=== PATIENT | male | born 1980 | race African-American/Black ===

== ENCOUNTER 2024-02-11 07:30 | Outpatient (RCR) | payer OTHER, SELFPAY ==
--- NOTE | 2023-12-31 08:44 | OT.OPPOC ---
Physical, Occupational & Speech Therapy At [facility] Mariam Wilkins [id number] 1980 Visit Care Team Role Provider Type Og Zimmerman Attending Provider Non-Staff Family Provider Primary Care Provider Referring Provider Address: [address] [place] [address], [place], [address] Occupational Therapy Plan of Care OT Outpatient Adult Evaluation Start: 12/31/23 07:25 Freq: Status: Active Protocol: Document 12/31/23 07:30 SHARDA (Rec: 12/31/23 08:07 SHARDA [id number]) General Information - Adult Visit Information Visit Number 04/02 Plan of Care Dates 12/31/23 - 03/10/24 Insurance Information Prime 12 visits approved Session Time Visit Start Date 12/31/23 Visit Start Time 07:30 Visit Stop Time 08:13 Setting Treatment Setting Outpatient Care Visit Type Note Type Initial Evaluation Referral Referring Physician Og Zimmerman Reason for Referral injury R wrist, hand, and fingers Identification Identification Confirmed Yes Identification Confirmed By pt EMR Patient Questionnaires Quick Dash- Upper Extremity Quick Dash UE Score 54.5 Quick Dash UE Impairment 40 to 59% Impaired (Score 40- 59) Quick Dash- Work and Sports Modules Quick Dash W&S Score Work 50/Sport 25 Quick Dash Work and Sport Impairment 40 to 59% Impaired (Score 40- 59) Goals Objective Measurements Objective Measurements Desulfurizer Operator: R 65, 75, 79 (avg 73#); L 121, 141, 154 (avg 138.7#) Lateral: R 27, L 23 Pincer: R 25, L 16 3 jaw: R 24, L 23 Treatment Treatment Coban used to maría tape 4th and 5th digits below PIP level Short Term Goals Short Term Goals 1. Pt will report compliance with maría taping 24 hrs a day (except when showering or washing hands). 2. Pt will increase average purchasing and claims supervisor strength to 85# to assist in desired leisure tasks. 3. Pt will report mild difficulty with carrying a shopping bag. 4. Pt will report pain at 6/10 or less with activity. Track Patrol Goals Prison Goals 1. Pt will be I with HEP. 2. Pt will increase average purchasing and claims supervisor strength to 110# to assist in desired leisure tasks . 3. Pt will report improved function with QuickDash score of 25 or better. 4. Pt will report no pain with PROM of 5th digit. Assessment/Plan Assessment Patient Response Good Rehabilitation Potential Good Impairments Identified Body Mechanics,Coordination/ Dexterity,Functional Activities,Pain,Weakness, Posture,Meaningful Activities Treatment Assessment Pt is 43 yo M referred for skilled OT services with a hx of R dominant 5th PCP joint traumatic injury, negative xrays, with persistent pain with stressing of the joint, per MD order. Pt reports he sustained his injury while loading a heavy case into aircraft and his hand was caught between the case and the aircraft. Pt reports that the initial injury was around November 15. He had initial laceration to his hand but painful symptoms have worsened with time. Pt reports he?s had increased pain when shaking hands, opening jars, lifting heavy items, and active and passive movements. 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 Pt reports no pain or difficulty with typical administrative duties. Pt?s Pmhx includes back pain, neck pain, and headaches. Pt has pain along his posterior 5th MP and in the web space between 4th and 5th digits with full active fisting, active radial deviation, active ulnar deviation, and active digit abd/add. Pt demonstrates full AROM of B UEs. Pt reported increased pain when OT performed 5th digit PROM by itself but lessened symptoms when 4th and 5th digits were passively ranged together. Pt has no sensory deficits or complaints. Pt?s symptoms are consistent with a ligamentous injury. OT educated pt on maría strapping/taping strategy and recommends performing this for 24 hours a day (except when bathing or washing hands) for approximately 6 weeks to allow for healing. OT applied coban of 4th and 5th digits below PIP to assist. Pt reports somewhat decreased symptoms when performing AROM in this position. Pt unable to tolerate gentle isometrics at time of eval without significant c/o pain. Skilled OT services are appropriate to address pts deficits and to promote return toward PLOF. Reviewed with Patient Goals Patient Understanding Excellent Plan Length of treatment (weeks) 10 Plan of Care Start Date 12/31/23 Plan of Care End Date 03/10/24 Treatment Frequency Once a Week Treatment Duration 45 Minutes Therapeutic Contents Client Education,Functional Activities,Home Exercise Program,Joint Protection, Manual Therapy,Education, Stretching/Flexibility Activities,Therapeutic Activities,Therapeutic Exercises Modalities As Needed Patient Instruction Plan of Care,Questions/ Concerns,Other Comment María taping strategy and reasoning Functional Wrist/Hand Scan Hand Side Sensory Assessment Sensory Profile2 Electronically Signed by: Audelia Gregory OT 12/31/23 0844 If you are in agreement with this Plan of Care, please return a signed and dated copy. I have reviewed this Plan of Care and certify that the skilled therapy services above are required to meet the patient?s needs. Physician Signature Date Printed Name and Credentials Clinical Instructor Signature Printed Name and Credentials
--- NOTE | 2024-01-07 08:11 | OT.OP.TRT ---
Visit Care Team Role Provider Type Og Zimmerman Attending Provider Non-Staff Family Provider Primary Care Provider Referring Provider Specialty: Medical Address: [address] [place] [address], [place], [address] Email: Occupational Therapy Treatment Note OT Outpatient Treatment Note - Adult Start: 12/31/23 07:25 Freq: Status: Active Protocol: Document 01/07/24 07:30 SHARDA (Rec: 01/07/24 07:28 SHARDA [id number]) OT Outpatient Adult Treatment Note Session Time Visit Start Date 01/07/24 Visit Start Time 07:30 Visit Stop Time 08:05 Visit Information Visit Number 05/03 Plan of Care Dates 12/31/23 - 03/10/24 Insurance Information Prime 12 visits approved Setting Treatment Setting Outpatient Care Visit Type Note Type Treatment Note - Subjective Identification Type Name Identification Reconciled With Medical Record Observations Pt reports he hasn't had to shake hands since people notice the maría tape. I guess because it is taped together and I am not moving it as much it is not bothering me as much. Pt reports that his instinctively grabbed his hand and he had instant 7- 8/10 and lingered for a few hours. Pt reports pain during tx at 2/10, except during ball squeeze which was 8/10. Exercise was discontinued after first rep. - Objective Short Term Goals 1. Pt will report compliance with maría taping 24 hrs a day (except when showering or washing hands). 2. Pt will increase average cannery tender engineer strength to 85# to assist in desired leisure tasks. 3. Pt will report mild difficulty with carrying a shopping bag. 4. Pt will report pain at 6/10 or less with activity. Case Fitter Goals 1. Pt will be I with HEP. 2. Pt will increase average cannery tender engineer strength to 110# to assist in desired leisure activities. 3. Pt will report improved function with QuickDash score of 25 or better. 4. Pt will report no pain with PROM of 5th digit. - Exercises 2 Descriptor tendon glides 1 Descriptor Glass Worker/pinch strength: ball squeeze (5) x1 rep, c/o 8/10 pain, discontinued yellow digi flex 4th and 5th flexion (pain free ROM) 2 min x2 blue foam roll claw fist (pain free ROM) 2 min x 2 yellow tputty: hook curls, digit extension, finger adduction (MPs flexed) to tolerance - Assessment Patient Response to Treatment Excellent Rehabilitation Potential Excellent Impairments Identified Body Mechanics,Coordination/ Dexterity,Functional Activities,Pain,Weakness, Posture,Meaningful Activities Progress Towards Goals Good Progress Assessment of Overall Progress Improving Assessment of Improvement Pt demonstrates good compliance with maría taping strategy and his reports of reduced pain with activity coincides with this nicely. Pt tolerated all exercises well, except for 5 ball squeeze and putty abd (fingers extended). Both of these were immediately discontinued. Pt able to tolerate putty abd with MPs in flexed position. OT educated pt to continue with maría taping and issued tputty HEP. Skilled OT services remain appropriate for pt. Cont per established POC. Reviewed with Patient/Caregiver Home Exercise Program Patient/Caregiver Understanding Excellent - Plan Therapy Recommendations Continue with Current Program Amount of Therapy Recommended 2-3 Months Frequency of Treatment Once a Week Length of Session 45 Minutes Therapeutic Contents Client Education,Functional Activities,Home Exercise Program,Joint Protection, Manual Therapy,Education, Stretching/Flexibility Activities,Therapeutic Activities,Therapeutic Exercises Modalities As Needed
--- NOTE | 2024-01-14 08:08 | OT.OP.TRT ---
Visit Care Team Role Provider Type Og Zimmerman Attending Provider Non-Staff Family Provider Primary Care Provider Referring Provider Specialty: Medical Address: [address] [place] [address], [place], [address] Email: Occupational Therapy Treatment Note OT Outpatient Treatment Note - Adult Start: 12/31/23 07:25 Freq: Status: Active Protocol: Document 01/14/24 07:30 SHARDA (Rec: 01/14/24 08:08 SHARDA [id number]) OT Outpatient Adult Treatment Note Session Time Visit Start Date 01/14/24 Visit Start Time 07:30 Visit Stop Time 08:00 Visit Information Visit Number 05/31 Plan of Care Dates 12/31/23 - 03/10/24 Insurance Information Prime 12 visits approved Setting Treatment Setting Outpatient Care Visit Type Note Type Treatment Note - Subjective Identification Type Name Identification Reconciled With Medical Record Observations Pt reports that he has been performing fist bumps instead of shaking hands. He continues to wear his maría taping at all times except when cooking or bathing. Pt reports pain at worse in the last few days 09/30 but these are infrequent instances. Pt reports no pain with the maría taping. Pt reports feeling fatigued at end of tx, no increased pain. - Objective Short Term Goals 1. Pt will report compliance with maría taping 24 hrs a day (except when showering or washing hands). MET 01/14/24 2. Pt will increase average heater mechanic strength to 85# to assist in desired leisure tasks. 3. Pt will report mild difficulty with carrying a shopping bag. 4. Pt will report pain at 6/10 or less with activity. Jewelry Cutter Goals 1. Pt will be I with HEP. 2. Pt will increase average heater mechanic strength to 110# to assist in desired leisure activities. 3. Pt will report improved function with QuickDash score of 25 or better. 4. Pt will report no pain with PROM of 5th digit. - Exercises 2 Descriptor tendon glides 1 Descriptor Production Grader/pinch strength: ball squeeze (5) submaximal squeezes pain free 2 min red digi flex 4th and 5th flexion (pain free ROM) 2 min x2 blue foam roll claw fist (pain free ROM) 2 min x 2 yellow tputty: hook curls, digit extension, finger adduction (MPs flexed) to tolerance isometric 4th and 5th adduction 3-5 second holds - Assessment Patient Response to Treatment Excellent Rehabilitation Potential Excellent Impairments Identified Body Mechanics,Coordination/ Dexterity,Functional Activities,Pain,Weakness, Posture,Meaningful Activities Progress Towards Goals Good Progress Assessment of Overall Progress Improving Assessment of Improvement Pt tolerated tx well. Pt was able to increase to red digi flex, perform submaximal ball service center supervisor without pain, and tolerated isometric adduction. OT continues to explain the importance of maría taping during the healing process. Pt is compliant and understands this well. Pt has met STG #1 and continues to make progress per established POC. Home Exercise Program yellow tputty Reviewed with Patient/Caregiver Home Exercise Program Patient/Caregiver Understanding Excellent - Plan Therapy Recommendations Continue with Current Program Amount of Therapy Recommended 2-3 Months Frequency of Treatment Once a Week Length of Session 45 Minutes Therapeutic Contents Client Education,Functional Activities,Home Exercise Program,Joint Protection, Manual Therapy,Education, Stretching/Flexibility Activities,Therapeutic Activities,Therapeutic Exercises Modalities As Needed
--- NOTE | 2024-01-28 08:08 | OT.OP.TRT ---
Visit Care Team Role Provider Type Og Zimmerman Attending Provider Non-Staff Family Provider Primary Care Provider Referring Provider Specialty: Medical Address: [address] [place] [address], [place], [address] Email: Occupational Therapy Treatment Note OT Outpatient Treatment Note - Adult Start: 12/31/23 07:25 Freq: Status: Active Protocol: Document 01/28/24 07:27 SHARDA (Rec: 01/28/24 08:08 SHARDA [id number]) OT Outpatient Adult Treatment Note Session Time Visit Start Date 01/28/24 Visit Start Time 07:30 Visit Stop Time 08:00 Visit Information Visit Number 07/01 Plan of Care Dates 12/31/23 - 03/10/24 Insurance Information Prime 12 visits approved Setting Treatment Setting Outpatient Care Visit Type Note Type Treatment Note - Subjective Identification Type Name Identification Reconciled With Medical Record Observations I think it's feeling a little better. I've been using the putty more often. Pt demonstrates digit abd with pen or his fingers isometricly . Pt reports he performs this throughout the day. Pt reports this last week he was walking in a stairwell in [place] and his finger got snagged. Pt reports his pain was a 10/10. The intensity of the pain went away quickly but was sore for a few days following. Pt reports pain at most during tx at 2/10. - Objective Objective Measurements Derrick Helper: R 110#, 95#, 107# (avg 104#) Short Term Goals 1. Pt will report compliance with maría taping 24 hrs a day (except when showering or washing hands). MET 01/14/24 2. Pt will increase average machine inker strength to 85# to assist in desired leisure tasks. MET 01/28/24 3. Pt will report mild difficulty with carrying a shopping bag. 4. Pt will report pain at 6/10 or less with activity. Regional Controller Goals 1. Pt will be I with HEP. 2. Pt will increase average machine inker strength to 110# to assist in desired leisure activities. 3. Pt will report improved function with QuickDash score of 25 or better. 4. Pt will report no pain with PROM of 5th digit. - Exercises 2 Descriptor tendon glides 1 Descriptor Derrick Helper/pinch strength: ball squeeze (5): 0 green digi flex all digits ( pain free ROM) 2 min x 2 yellow digi flex alternating 4th and 5th 2 min x 2 blue foam roll claw fist (pain free ROM) 2 min x 2 yellow tputty: 0 isometric 4th and 5th: 0 blue clothes pin: 4th and 5th digit pinch 10 x 2 - Assessment Patient Response to Treatment Excellent Rehabilitation Potential Excellent Impairments Identified Body Mechanics,Coordination/ Dexterity,Functional Activities,Pain,Weakness, Posture,Meaningful Activities Progress Towards Goals Good Progress Assessment of Overall Progress Improving Assessment of Improvement OT discussed pt's maría taping routine and suggested wearing it until at least 01/31 (6 weeks from start), at which time, pt can test doing activities without it on. If they increase his pain, OT suggests re-applying maría taping and testing it again in 1-2 weeks. Pt demonstrates a gain in machine inker strength average of 31#. His non-dominant hand is still 34# stronger than his R, continued gains expected for pt. Pt tolerated increased resistance and strengthening exercises today with minimal increase in symptoms. Pt forgot his putty . OT to assess pt's I with HEP when he remembers to bring. Pt makes progress per established POC. Cont per POC. Reviewed with Patient/Caregiver Home Exercise Program Patient/Caregiver Understanding Excellent - Plan Therapy Recommendations Continue with Current Program Amount of Therapy Recommended 2-3 Months Frequency of Treatment Once a Week Length of Session 45 Minutes Therapeutic Contents Client Education,Functional Activities,Home Exercise Program,Joint Protection, Manual Therapy,Education, Stretching/Flexibility Activities,Therapeutic Activities,Therapeutic Exercises Modalities As Needed
--- NOTE | 2024-02-04 08:13 | OT.OP.TRT ---
Visit Care Team Role Provider Type Og Zimmerman Attending Provider Non-Staff Family Provider Primary Care Provider Referring Provider Specialty: Medical Address: [address] [place] [address], [place], [address] Email: Occupational Therapy Treatment Note OT Outpatient Treatment Note - Adult Start: 12/31/23 07:25 Freq: Status: Active Protocol: Document 02/04/24 07:30 SHARDA (Rec: 02/04/24 08:12 CHRISTINALEXUS [id number]) OT Outpatient Adult Treatment Note Session Time Visit Start Date 02/04/24 Visit Start Time 07:30 Visit Stop Time 08:05 Visit Information Visit Number 07/31 Plan of Care Dates 12/31/23 - 03/10/24 Insurance Information [facility] 12 visits approved Setting Treatment Setting Outpatient Care Visit Type Note Type Treatment Note - Subjective Identification Type Name Identification Reconciled With Medical Record Observations It feels good to be honest. No major discomforts really. I 've been doing exercises ( putty). There are vast improvements until. Pt reports no significant pain to note over the last week. - Objective Short Term Goals 1. Pt will report compliance with maría taping 24 hrs a day (except when showering or washing hands). MET 01/14/24 2. Pt will increase average coke wheeler strength to 85# to assist in desired leisure tasks. MET 01/28/24 3. Pt will report mild difficulty with carrying a shopping bag. 4. Pt will report pain at 6/10 or less with activity. MET Moving Worker Goals 1. Pt will be I with HEP. MET 02/04/24 2. Pt will increase average coke wheeler strength to 110# to assist in desired leisure activities. 3. Pt will report improved function with QuickDash score of 25 or better. 4. Pt will report no pain with PROM of 5th digit. - Exercises 2 Descriptor tendon glides 1 Descriptor Sweater Designer/pinch strength: blue digi flex all digits ( pain free ROM) 2 min x 2 red digi flex alternating 4th and 5th 2 min x 2 green tputty: gripping, digit abd, digit add to tolerance blue clothes pin: 4th and 5th digit pinch 10 x 3 coke wheeler digit ext web: 10 x 3 - Assessment Patient Response to Treatment Excellent Rehabilitation Potential Excellent Impairments Identified Body Mechanics,Coordination/ Dexterity,Functional Activities,Pain,Weakness, Posture,Meaningful Activities Progress Towards Goals Good Progress Assessment of Overall Progress Improving Assessment of Improvement Pt was able to tolerate an increase in resistance with digi flex, increased resistance with putty, increased sets with graded clothespin, and addition of resisted digit adduction. Pt tolerates all of these with minimal discomfort. OT discussed attempting to wean off from maría taping/ strapping next week. OT instructs pt to return to wearing taping if he begins to have an increase in pain or discomfort. Pt verbalizes understanding. Pt issued green tputty for home use. PT has met STG #4 and LTG#1. Cont per established POC. Reviewed with Patient/Caregiver Home Exercise Program Patient/Caregiver Understanding Excellent - Plan Therapy Recommendations Continue with Current Program Amount of Therapy Recommended 2-3 Months Frequency of Treatment Once a Week Length of Session 45 Minutes Therapeutic Contents Client Education,Functional Activities,Home Exercise Program,Joint Protection, Manual Therapy,Education, Stretching/Flexibility Activities,Therapeutic Activities,Therapeutic Exercises Modalities As Needed
--- NOTE | 2024-02-11 07:57 | OT.OP.TRT ---
Visit Care Team Role Provider Type Og Zimmerman Attending Provider Non-Staff Family Provider Primary Care Provider Referring Provider Specialty: Medical Address: [address] [place] [address], [place], [address] Email: Occupational Therapy Treatment Note OT Outpatient Treatment Note - Adult Start: 12/31/23 07:25 Freq: Status: Active Protocol: Document 02/11/24 07:30 SHARDA (Rec: 02/11/24 07:57 SHARDA [id number]) OT Outpatient Adult Treatment Note Session Time Visit Start Date 02/11/24 Visit Start Time 07:30 Visit Stop Time 07:55 Visit Information Visit Number 08/31 Plan of Care Dates 12/31/23 - 03/10/24 Insurance Information Prime 12 visits approved Setting Treatment Setting Outpatient Care Visit Type Note Type Treatment Note - Subjective Identification Type Name Identification Reconciled With Medical Record Observations Pt stopped wearing his maría taping on Friday and reports I've had no problems. He reports he can move it better and is not having any pain when people shake his hand. - Objective Objective Measurements QuickDash 2.27 QuickDash Work 0 QuickDash Sport 0 Wine Steward/Stewardess: R 170#, 145#, 141# (avg 152#) Short Term Goals 1. Pt will report compliance with maría taping 24 hrs a day (except when showering or washing hands). MET 01/14/24 2. Pt will increase average jacquard loom carpet weaver strength to 85# to assist in desired leisure tasks. MET 01/28/24 3. Pt will report mild difficulty with carrying a shopping bag. 4. Pt will report pain at 6/10 or less with activity. MET Assisted Goals 1. Pt will be I with HEP. MET 02/04/24 2. Pt will increase average jacquard loom carpet weaver strength to 110# to assist in desired leisure activities. MET 02/11/24 3. Pt will report improved function with QuickDash score of 25 or better. MET 02/11/24 4. Pt will report no pain with PROM of 5th digit. MET - Exercises 1 Descriptor Wine Steward/Stewardess/pinch strength: blue digi flex all digits ( pain free ROM) 2 min x 2 red digi flex alternating 4th and 5th 2 min x 2 green tputty: gripping, digit abd, digit add to tolerance blue clothes pin: 4th and 5th digit pinch 10 x 3 jacquard loom carpet weaver digit ext web: 10 x 3 - Assessment Patient Response to Treatment Excellent Rehabilitation Potential Excellent Impairments Identified Body Mechanics,Coordination/ Dexterity,Functional Activities,Pain,Weakness, Posture,Meaningful Activities Progress Towards Goals Excellent Progress,Goals Met, Appropriate for Discharge Assessment of Overall Progress Improving Assessment of Improvement Pt has made excellent progress since beginning skilled OT services. Pt no longer has pain with any passive or active task. Pt can tolerate loading his hand with grocery bags, shaking hands, and performing his desired leisure tasks without any symptoms. Pt demonstrates significant gains in jacquard loom carpet weaver strength as well as perceived function. See objective section for details. Pt has met all established goals and is eager to d/c to HEP. Pt is appropriate for d/c from skilled services at this time. Reviewed with Patient/Caregiver Goals,Progress Being Made,Home Exercise Program Patient/Caregiver Understanding Excellent - Plan Therapy Recommendations Discharge to Home Exercise Program
--- NOTE | 2024-02-11 07:58 | OT.OP.DC ---
Visit Care Team Role Provider Type Og Zimmerman Attending Provider Non-Staff Family Provider Primary Care Provider Referring Provider Address: [address] [place] [address], [place], [address] Email: OT Outpatient OT Outpatient Adult Evaluation Start: 12/31/23 07:25 Freq: Status: Active Protocol: Document 12/31/23 07:30 SHARDA (Rec: 12/31/23 08:07 SHARDA [id number]) General Information - Adult Visit Information Visit Number 04/02 Plan of Care Dates 12/31/23 - 03/10/24 Insurance Information Prime 12 visits approved Session Time Visit Start Date 12/31/23 Visit Start Time 07:30 Visit Stop Time 08:13 Setting Treatment Setting Outpatient Care Visit Type Note Type Initial Evaluation Referral Referring Physician Og Zimmerman Reason for Referral injurty R wrist, hand, and fingers Identification Identification Confirmed Yes Identification Confirmed By pt EMR Patient Questionnaires Quick Dash- Upper Extremity Quick Dash UE Score 54.5 Quick Dash UE Impairment 40 to 59% Impaired (Score 40- 59) Quick Dash- Work and Sports Modules Quick Dash W&S Score Work 50/Sport 25 Quick Dash Work and Sport Impairment 40 to 59% Impaired (Score 40- 59) Goals Objective Measurements Objective Measurements Dolphin Trainer: R 65, 75, 79 (avg 73#); L 121, 141, 154 (avg 138.7#) Lateral: R 27, L 23 Pincer: R 25, L 16 3 jaw: R 24, L 23 Treatment Treatment Coban used to gordo tape 4th and 5th digits below PIP level Short Term Goals Short Term Goals 1. Pt will report compliance with gordo taping 24 hrs a day (except when showering or washing hands). 2. Pt will increase average rn diabetes educator strength to 85# to assist in desired leisure tasks. 3. Pt will report mild difficulty with carrying a shopping bag. 4. Pt will report pain at 6/10 or less with activity. Snf Goals Snf Goals 1. Pt will be I with HEP. 2. Pt will increase average rn diabetes educator strength to 110# to assist in desired leisre tasks . 3. Pt will report improved function with QuickDash score of 25 or better. 4. Pt will report no pain with PROM of 5th digit. Assessment/Plan Assessment Patient Response Good Rehabilitation Potential Good Impairments Identified Body Mechanics,Coordination/ Dexterity,Functional Activities,Pain,Weakness, Posture,Meaningful Activities Treatment Assessment Pt is 43 yo M referred for skilled OT services with a hx of R dominant 5th PCP joint traumatic injury, negative xrays, with persistent pain with stressing of the joint, per MD order. Pt reports he sustained his injury while loading a heavy case into aircraft and his hand was caught between the case and the aircraft. Pt reports that the initial injury was around November 15. He had initial laceration to his hand but painful symptoms have worsened with time. Pt reports he?s had increased pain when shaking hands, opening jars, lifting heavy items, and active and passive movements. 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 Pt reports no pain or difficulty with typical administrative duties. Pt?s Pmhx includes back pain, neck pain, and headaches. Pt has pain along his posterior 5th MP and in the web space between 4th and 5th digits with full active fisting, active radial deviation, active ulnar deviation, and active digit abd/add. Pt demonstrates full AROM of B UEs. Pt reported increased pain when OT performed 5th digit PROM by itself but lessened symptoms when 4th and 5th digits were passively ranged together. Pt has no sensory deficits or complaints. Pt?s symptoms are consistent with a ligamentous injury. OT educated pt on gordo strapping/taping strategy and recommends performing this for 24 hours a day (except when bathing or washing hands) for approximately 6 weeks to allow for healing. OT applied coban of 4th and 5th digits below PIP to assist. Pt reports somewhat decreased symptoms when performing AROM in this position. Pt unable to tolerate gentle isometrics at time of eval without significant c/o pain. Skilled OT services are appropriate to address pts deficits and to promote return toward PLOF. Reviewed with Patient Goals Patient Understanding Excellent Plan Length of treatment (weeks) 10 Plan of Care Start Date 12/31/23 Plan of Care End Date 03/10/24 Treatment Frequency Once a Week Treatment Duration 45 Minutes Therapeutic Contents Client Education,Functional Activities,Home Exercise Program,Joint Protection, Manual Therapy,Education, Stretching/Flexibility Activities,Therapeutic Activities,Therapeutic Exercises Modalities As Needed Patient Instruction Plan of Care,Questions/ Concerns,Other Comment Gordo taping strategy and reasoning Functional Wrist/Hand Scan Hand Side Sensory Assessment Sensory Profile2 OT Outpatient Treatment Note - Adult Start: 12/31/23 07:25 Freq: Status: Active Protocol: Document 02/11/24 07:30 SHARDA (Rec: 02/11/24 07:57 SHARDA [id number]) OT Outpatient Adult Discharge Note Session Time Visit Start Date 02/11/24 Visit Start Time 07:30 Visit Stop Time 07:55 Visit Information Visit Number 08/31 Plan of Care Dates 12/31/23 - 03/10/24 Insurance Information Prime 12 visits approved Setting Treatment Setting Outpatient Care Visit Type Note Type Discharge Note - Subjective Identification Type Name Identification Reconciled With Medical Record Observations Pt stopped wearing his gordo taping on Friday and reports I've had no problems. He reports he can move it better and is not having any pain when people shake his hand. - Objective Objective Measurements QuickDash 2.27 QuickDash Work 0 QuickDash Sport 0 Dolphin Trainer: R 170#, 145#, 141# (avg 152#) Short Term Goals 1. Pt will report compliance with gordo taping 24 hrs a day (except when showering or washing hands). MET 01/14/24 2. Pt will increase average rn diabetes educator strength to 85# to assist in desired leisure tasks. MET 01/28/24 3. Pt will report mild difficulty with carrying a shopping bag. 4. Pt will report pain at 6/10 or less with activity. MET Culture Room Worker Goals 1. Pt will be I with HEP. MET 02/04/24 2. Pt will increase average rn diabetes educator strength to 110# to assist in desired leisure activities. MET 02/11/24 3. Pt will report improved function with QuickDash score of 25 or better. MET 02/11/24 4. Pt will report no pain with PROM of 5th digit. MET - Assessment Patient Response to Treatment Excellent Rehabilitation Potential Excellent Impairments Identified Body Mechanics,Coordination/ Dexterity,Functional Activities,Pain,Weakness, Posture,Meaningful Activities Progress Towards Goals Excellent Progress,Goals Met, Appropriate for Discharge Assessment of Overall Progress Improving Assessment of Improvement Pt has made excellent progress since beginning skilled OT services. Pt no longer has pain with any passive or active task. Pt can tolerate loading his hand with grocery bags, shaking hands, and performing his desired leisure tasks without any symptoms. Pt demonstrates significant gains in rn diabetes educator strength as well as perceived function. See objective section for details. Pt has met all established goals and is eager to d/c to HEP. Pt is appropriate for d/c from skilled services at this time. Reviewed with Patient/Caregiver Goals,Progress Being Made,Home Exercise Program Patient/Caregiver Understanding Excellent - Plan Therapy Recommendations Discharge to Home Exercise Program
== END 2024-02-13 10:11 | disposition home or self-care (01) ==
LOC: OT 07:30
DX: S69.91XA Unspecified injury of right wrist, hand and finger(s), initial encounter (principal)
CPT/HCPCS: 97110; 97165; 97530